=== PATIENT | female | born 1975 | race African-American/Black ===

== ENCOUNTER 2016-12-03 17:28 | Emergency (ER) | payer OTHER ==
--- NOTE | ~2016-12-03 | EKG ---
PATIENT: TROY MARTIN UNIT #: [id number] Ventricular Rate: 70 BPM Atrial Rate: 70 BPM P-R Interval: 138 ms QRS Duration: 76 ms Q-T Interval: 376 ms QTC Calculation(Bezet): 406 ms P [place]: 68 degrees Calculated R [place]: 18 degrees Calculated T [place]: 31 degrees Diagnosis Line: Normal sinus rhythm Diagnosis Line: Normal ECG Diagnosis Line: No previous ECGs available Diagnosis Line: Confirmed by HAY JIMENEZ MD ([id number]) on Diagnosis Line: 12/05/2016 8:51:18 AM INTERPRETING MD: TONY GARY
--- NOTE | ~2016-12-03 | CT16 ---
[facility]. [facility] A Service [facility] RADIOLOGY TEXT RESULTS PATIENT: TROY MARTIN LOCATION: SED : 75 UNIT #: [id number] AGE: [address]: Get Wagoner MD SEX: F ORDER DR: [id number] [place] [id number] E MR#: [id number] Acc #: [id number] NAME: TROY MARTIN : 1975 SEX: F STUDY DATE/TIME: 12/03/2016 19:15 UNIT: SED ROOM: STUDY DESCRIPTION: CT Angio Chest for PE Attending Physician: Get Wagoner M.D. Ordering Physician: Get Wagoner M.D. Primary Care Physician: Jackson Abraham M.D. MEDICAL IMAGING REPORT This report is preliminary unless electronic signature is present. EXAM CTA chest with contrast PE protocol 12/03/2016 HISTORY 41-year-old female with chest pain beginning today. Elevated D-dimer. COMPARISON None TECHNIQUE Helical scan performed through the chest following the timed bolus administration of IV contrast per PE protocol. Coronal 3-D MIP reconstructions. Sagittal reformatted images. This CT exam was performed with one or more of the following radiation dose reduction techniques: automatic exposure control, adjustment of mA and/or kV according to patient size, and iterative reconstruction. FINDINGS There is adequate opacification of the pulmonary arteries and no filling defects noted. Thoracic aorta normal in course and caliber without dissection. Heart size is normal. No pericardial effusion. No pleural effusions. No pneumothorax. No parenchymal infiltrates. Scanning through the upper abdomen is unremarkable. No acute bony abnormalities. IMPRESSION 1. Negative for pulmonary emboli. 2. Negative for thoracic aortic aneurysm/dissection. 3. No acute pulmonary process. [facility] A Service [facility] RADIOLOGY TEXT RESULTS PATIENT: TROY MARTIN LOCATION: SED : 75 UNIT #: [id number] AGE: [address]: Get Wagoner MD SEX: F ORDER DR: Dictated by... Ramses Mantilla M.D. THIS IS AN ELECTRONICALLY VERIFIED REPORT Ramses Mantilla M.D. at 12/04/2016 9:06 AM JORI/gertrude TD: 12/03/2016 23:21 JOB #: [id number] MEDICAL IMAGING REPORT Page 1 of 1
[2016-12-03] MEDS ORDERED: NO MEDICATIONS (17:35)
[2016-12-03 18:29] LABS: BASOPHIL# 0.1 X10e3 (0-0.3); BASOPHIL% 0.7 % (0-2.5); DIFF IND NO; EOSINOPHIL# 0.2 X10e3 (0-0.7); EOSINOPHIL% 2.3 % (0.0-7.0); HEMATOCRIT 36.2 % (35.0-45.0); LYMPHOCYTE# 1.6 X10e3 (1.0-3.5); LYMPHOCYTE% 21.8 % (17.0-45.0); MEAN CELL VOLUME 92.4 FL (83-96); MEAN CORPUSCULAR HEMOGLOBIN 30.7 PG (28-34); MEAN CORPUSCULAR HGB CONC 33.3 g/dL (30-36); MEAN PLATELET VOLUME 9.3 FL (6.5-11.5); MONOCYTE# 0.5 X10e3 (0-1.0); NEUTROPHIL# 5.1 X10e3 (1.5-7.1); NEUTROPHIL% 68.2 % (40-75); PLATELET COUNT 217 X10e3 (140-420); RED BLOOD COUNT 3.91 X10e (3.90-5.30); RED CELL DISTRIBUTION WIDTH 13.2 % (11.0-15.5); WHITE BLOOD COUNT 7.5 X10e3 (4.0-10.5)
[2016-12-03 18:38] LABS: INR 1.1; PROTHROMBIN TIME (PATIENT) 11.9 SECONDS (9.5-12.4)
[2016-12-03 18:41] LABS: AMPHETAMINE NEG (NEG); BARBITURATES NEG (NEG); BENZODIAZEPINES NEG (NEG); COCAINE NEG (NEG); MARIJUANA NEG (NEG); OPIATES NEG (NEG); TRICYCLIC ANTIDEPRESSANTS NEG (NEG); U METHADONE NEG (NEG)
[2016-12-03 18:43] LABS: POC - CKMB <1.0 ng/mL (0.0-7.9); POC - TROPONIN <0.05 ng/mL (<=0.05)
[2016-12-03 18:45] LABS: PARTIAL THROMBOPLASTIN TIME 28.3 SECONDS (25.6-38.1)
[2016-12-03 19:05] LABS: ALBUMIN SERUM 3.8 g/dL (3.5-5.0); ALKALINE PHOSPHATASE 59 U/L (32-92); ALT (SGPT) 11 U/L (10-40); AST (SGOT) 15 U/L (10-42); BILIRUBIN, DIRECT <0.1 mg/dL (0.0-0.2); BILIRUBIN,INDIRECT 0.3 mg/dL (0.0-0.9); BILIRUBIN,TOTAL 0.4 mg/dL (0.2-2.0); BLOOD UREA NITROGEN 10 mg/dL (9-23); CALCIUM SERUM 7.9 mg/dL (8.4-10.2); CARBON DIOXIDE 26 mmol/L (22-31); CHLORIDE 105 mmol/L (100-111); CREATININE SERUM 0.8 mg/dL (0.6-1.4); GLOM FILT RATE Estimated 106.2 mL/min (>60); GLUCOSE FASTING 89 mg/dL (70-110); POTASSIUM 3.4 mmol/L (3.5-5.1); PROTEIN TOTAL SERUM 6.5 g/dL (6.0-8.3); SODIUM 133 mmol/L (135-145)
[2016-12-03 20:10] LABS: POC - CKMB <1.0 ng/mL (0.0-7.9); POC - TROPONIN <0.05 ng/mL (<=0.05)
[2016-12-03 21:27] LABS: POC - CKMB <1.0 ng/mL (0.0-7.9); POC - TROPONIN <0.05 ng/mL (<=0.05)
== END 2016-12-03 22:34 | disposition home or self-care (01) ==
LOC: SED 17:28
PROVIDERS: Emergency Medicine
DX: R07.9 Chest pain, unspecified (principal); I10 Essential (primary) hypertension
CPT/HCPCS: 36415; 71275; 80048; 80076; 80307; 82553; 84484; 84703; 85025; 85379; 85610; 85730; 93005; 96374; 99284; Q9967